=== PATIENT | male | born 1975 | race Caucasian/White ===

== ENCOUNTER 2023-08-02 10:54 | Outpatient (CLI) | payer SELFPAY ==
[2023-08-02] VITALS (7 sets, daily range): BP systolic 110–127; BP diastolic 65–87; PULSE 102–115; RESP 16–20; TEMP 36.4; O2SAT 97; BMI 29.9
--- NOTE | ~2023-08-02 | XR_ITS ---
EXAMINATION: [id number] DATE: 08/02/2023 14:04 INDICATION: Left pleural effusion status post thoracentesis. TECHNIQUE: A single frontal view of the chest was obtained. COMPARISON: None. FINDINGS: There are airspace opacities in left lower lung zone. There is a small loculated left pleur al effusion. No pneumothorax. The heart size is normal. IMPRESSION: 1. Airspace opacities in left lower lung zone, consistent with atelectasis versus pneumonia. 2. Small loculated left pleural effusion. Reviewed, dictated and finalized at location A. IMPRESSION: 1. Airspace opacities in left lower lung zone, consistent with atelectasis vers us pneumonia. 2. Small loculated left pleural effusion.
--- NOTE | ~2023-08-02 | US_ITS ---
EXAMINATION: US thoracentesis DATE: 08/02/2023 14:40 INDICATION: pleural effusion TECHNIQUE: The procedure and its risks, benefits, and alternatives were discussed with the patient. P otential risks discussed included bleeding, infection, and pneumothorax. The patient understood the r isks and agreed to proceed. The skin was prepped and draped in sterile fashion. 1% lidocaine was used for local anesthesia. The patient experienced a vasovagal reaction during the first catheter inserti on attempt. Under ultrasound guidance, a 5 Fr catheter with trochar was advanced into the left pleura l effusion. Fluid was aspirated. The catheter was removed, and a dressing was applied. FINDINGS: Ultrasound images demonstrate a left pleural effusion and the catheter within the fluid. IMPRESSION: 1. Successful ultrasound-guided thoracentesis yielding only 1 mL of serosanguineous fluid. 2. Vasovagal reaction during the procedure. Reviewed, dictated and finalized at location A. IMPRESSION: 1. Successful ultrasound-guided thoracentesis yielding only 1 mL of serosangui neous fluid. 2. Vasovagal reaction during the procedure.
[2023-08-02 12:25] LABS: Partial Thromboplastin Time 37.1 Seconds (22.3-36.8)
--- NOTE | 2023-08-02 16:00 | SUR.PHASEII ---
Patient was ready for discharge at 1600, patient awaiting ride home, vitals stable.
== END 2023-08-02 17:07 | disposition home or self-care (01) ==
PROVIDERS: Visit Provider Radiology Diagnostic Radiology
DX: J90 Pleural effusion, not elsewhere classified (principal); R91.8 Other nonspecific abnormal finding of lung field
CPT/HCPCS: 32555; 36415; 85610; 85730; 88108; 88305; C1729